=== PATIENT | male | born 1990 | race Caucasian/White ===

== ENCOUNTER 2022-02-24 21:30 | Inpatient (IN) | payer OTHER ==
[2022-02-24 21:55] VITALS: BMI 31.3
[2022-02-24] MEDS ORDERED: MAGNESIUM CITRATE 300 ML BOTTLE PO PRN (22:24)
[2022-02-24] MEDS ORDERED: ONDANSETRON *ODT* 4 MG TABLET SL PRN (22:24)
[2022-02-24] MEDS ORDERED: BENZOCAINE/MENTHOL (CHLORASEPTIC ) LOZENGE MM PRN (22:24)
[2022-02-24] MEDS ORDERED: MAG HYDROX/AL HYDROX/SIMETH 30 ML UNIT-DOSE CUP PO PRN (22:24)
[2022-02-24] MEDS ORDERED: MELATONIN 5 MG TABLETS PO PRN (22:24)
[2022-02-24] MEDS ORDERED: ACETAMINOPHEN 325 MG TABLET (FP) PO PRN (22:24)
[2022-02-24] MEDS ORDERED: DICYCLOMINE HCL 10 MG CAPSULE PO PRN (22:24)
[2022-02-24] MEDS ORDERED: MAGNESIUM HYDROX 2400MG/30ML ORAL SUSPENSION 30 ML CUP PO PRN (22:24)
[2022-02-24] MEDS ORDERED: BISMUTH SUBSALICYLATE 524 MG/30 ML PO PRN (22:24)
[2022-02-24] MEDS ORDERED: guaiFENesin 200 MG/10 ML 10 ML UNIT-DOSE CUPS PO PRN (22:24)
[2022-02-24] MEDS ORDERED: LOPERAMIDE HCL 2 MG CAPSULE PO PRN (22:24)
[2022-02-24] MEDS ORDERED: P-EPHED 60MG/TRIPROLIDI 2.5MG TABLET ONE (23:10)
[2022-02-24] MEDS: P-EPHED 60MG/TRIPROLIDI 2.5MG TABLET PO PRN (23:12)
[2022-02-24] MEDS: METHOCARBAMOL 500 MG TABLET PO PRN (23:30)
[2022-02-24] MEDS: hydrOXYzine PAMOATE 25 MG CAPSULE (FP) PO PRN (23:30)
[2022-02-25] MEDS ORDERED: diazePAM 5 MG TABLET PO PRN (10:15)
[2022-02-25] MEDS: PRENATAL VITAMINS W/ FOLIC ACID TABLET (FP) PO SCH (10:45)
[2022-02-25] MEDS: diazePAM 5 MG TABLET PO SCH ×3 (10:45→22:23)
[2022-02-25] MEDS: METHOCARBAMOL 500 MG TABLET PO PRN (10:45)
[2022-02-25] MEDS: FLUoxetine HCL 20 MG CAPSULE PO SCH (14:12)
[2022-02-25] MEDS: busPIRone HCL 10 MG TABLET (FP) PO SCH ×2 (14:12→22:58)
[2022-02-25 14:20] LABS: HEMATOCRIT 46.2 % (35.4-49); HEMOGLOBIN 14.7 GM/dL (11.7-16.9); MCH 24.6 pg (25.7-33.7); MCHC 31.8 g/dl (32.0-35.9); MEAN CELL VOLUME 77.4 fl (80-96); MEAN PLT VOLUME 9.7 fl (7.5-11.1); PLATELET COUNT 201 10^3/uL (134-434); RBC 5.97 M/mm3 (4.00-5.60); RDW 15.2 % (11.9-15.9)
[2022-02-25 16:32] LABS: BLOOD UREA NITROGEN 21.1 mg/dL (7-18); CALCIUM 8.8 mg/dL (8.5-10.1)
[2022-02-25 16:33] LABS: ALBUMIN 3.4 g/dl (3.4-5.0)
[2022-02-25 16:35] LABS: CREATININE 0.8 mg/dL (0.55-1.3)
[2022-02-25 16:37] LABS: BILIRUBIN,TOTAL 0.9 mg/dL (0.2-1)
[2022-02-25] MEDS: P-EPHED 60MG/TRIPROLIDI 2.5MG TABLET PO PRN (17:14)
[2022-02-25] MEDS: IBUPROFEN 600 MG TABLET (FP) PO PRN (17:15)
[2022-02-25] MEDS: THIAMINE HCL 100 MG TABLET (FP) PO SCH (22:23)
[2022-02-25] MEDS: traZODone HCL 50 MG TABLET (FP) PO SCH (22:29)
[2022-02-25] MEDS: QUEtiapine FUMARATE 100 MG TABLET (FP) PO SCH (22:29)
[2022-02-26] MEDS: diazePAM 5 MG TABLET PO SCH ×4 (05:16→22:29)
[2022-02-26] MEDS: FLUoxetine HCL 20 MG CAPSULE PO SCH (10:05)
[2022-02-26] MEDS: PRENATAL VITAMINS W/ FOLIC ACID TABLET (FP) PO SCH (10:05)
[2022-02-26] MEDS: IBUPROFEN 600 MG TABLET (FP) PO PRN (10:05)
[2022-02-26] MEDS: busPIRone HCL 10 MG TABLET (FP) PO SCH ×2 (10:05→22:28)
[2022-02-26] MEDS: P-EPHED 60MG/TRIPROLIDI 2.5MG TABLET PO PRN ×2 (10:06→18:04)
[2022-02-26] MEDS: IBUPROFEN 400 MG TABLET (FP) PO PRN (18:06)
[2022-02-26] MEDS: traZODone HCL 50 MG TABLET (FP) PO SCH (22:28)
[2022-02-26] MEDS: QUEtiapine FUMARATE 100 MG TABLET (FP) PO SCH (22:28)
[2022-02-26] MEDS: THIAMINE HCL 100 MG TABLET (FP) PO SCH (22:28)
[2022-02-27] MEDS: diazePAM 5 MG TABLET PO SCH ×3 (05:13→22:08)
[2022-02-27] MEDS: P-EPHED 60MG/TRIPROLIDI 2.5MG TABLET PO PRN ×2 (10:54→22:09)
[2022-02-27] MEDS: FLUoxetine HCL 20 MG CAPSULE PO SCH (10:54)
[2022-02-27] MEDS: busPIRone HCL 10 MG TABLET (FP) PO SCH ×2 (10:54→22:09)
[2022-02-27] MEDS: ACETAMINOPHEN 325 MG TABLET (FP) PO PRN (10:55)
[2022-02-27] MEDS: PRENATAL VITAMINS W/ FOLIC ACID TABLET (FP) PO SCH (10:56)
[2022-02-27 11:49] LABS: ALBUMIN 3.3 g/dl (3.4-5.0)
[2022-02-27 11:52] LABS: BLOOD UREA NITROGEN 14.7 mg/dL (7-18); CALCIUM 8.6 mg/dL (8.5-10.1)
[2022-02-27 11:56] LABS: CREATININE 0.6 mg/dL (0.55-1.3); TOT PROT 6.7 g/dl (6.4-8.2)
[2022-02-27 11:58] LABS: BILIRUBIN,TOTAL 0.2 mg/dL (0.2-1)
[2022-02-27] MEDS: NICOTINE POLACRILEX 2 MG GUM BUC PRN ×2 (19:24→21:38)
[2022-02-27] MEDS: QUEtiapine FUMARATE 100 MG TABLET (FP) PO SCH (22:08)
[2022-02-27] MEDS: THIAMINE HCL 100 MG TABLET (FP) PO SCH (22:08)
[2022-02-27] MEDS: traZODone HCL 50 MG TABLET (FP) PO SCH (22:09)
[2022-02-28] MEDS: diazePAM 5 MG TABLET PO SCH ×2 (05:07→18:34)
[2022-02-28] MEDS: FLUoxetine HCL 20 MG CAPSULE PO SCH (10:17)
[2022-02-28] MEDS: busPIRone HCL 10 MG TABLET (FP) PO SCH ×2 (10:18→22:52)
[2022-02-28] MEDS: P-EPHED 60MG/TRIPROLIDI 2.5MG TABLET PO PRN (10:18)
[2022-02-28] MEDS: hydrOXYzine PAMOATE 25 MG CAPSULE (FP) PO PRN (10:18)
[2022-02-28] MEDS: PRENATAL VITAMINS W/ FOLIC ACID TABLET (FP) PO SCH (10:18)
[2022-02-28] MEDS: ACETAMINOPHEN 325 MG TABLET (FP) PO PRN (10:18)
[2022-02-28] MEDS: NICOTINE POLACRILEX 2 MG GUM BUC PRN (10:57)
[2022-02-28] MEDS: QUEtiapine FUMARATE 100 MG TABLET (FP) PO SCH (22:07)
[2022-02-28] MEDS: traZODone HCL 50 MG TABLET (FP) PO SCH (22:07)
[2022-02-28] MEDS: THIAMINE HCL 100 MG TABLET (FP) PO SCH (22:07)
[2022-02-28] MEDS: IBUPROFEN 400 MG TABLET (FP) PO PRN (22:09)
[2022-03-01] MEDS ORDERED: diazePAM 5 MG TABLET PO ONE (06:00)
[2022-03-01 06:17] VITALS: RESP 18
[2022-03-01] MEDS: PRENATAL VITAMINS W/ FOLIC ACID TABLET (FP) PO SCH (09:07)
[2022-03-01] MEDS: FLUoxetine HCL 20 MG CAPSULE PO SCH (09:07)
[2022-03-01] MEDS: busPIRone HCL 10 MG TABLET (FP) PO SCH (09:07)
[2022-03-01 09:23] VITALS: BP 111/58; PULSE 98; TEMP 97.8
== END 2022-03-01 09:25 | disposition home or self-care (01) | DRG 775 ==
LOC: YASAS 21:30 → Y6N 23:10
PROVIDERS: ADMIT Allergy & Immunology; ATTEND Surgery
PROC: HZ2ZZZZ Detoxification Services for Substance Abuse Treatment (ICD-10-PCS; principal; 2022-02-24)
DX: F10.230 Alcohol dependence with withdrawal, uncomplicated (principal); F13.20 Sedative, hypnotic or anxiolytic dependence, uncomplicated; F15.10 Other stimulant abuse, uncomplicated; F12.20 Cannabis dependence, uncomplicated; F17.210 Nicotine dependence, cigarettes, uncomplicated; F19.280 Other psychoactive substance dependence with psychoactive substance-induced anxiety disorder; F19.282 Other psychoactive substance dependence with psychoactive substance-induced sleep disorder; F31.9 Bipolar disorder, unspecified; R76.8 Other specified abnormal immunological findings in serum; Z86.19 Personal history of other infectious and parasitic diseases; Z59.00 Homelessness unspecified; Z56.0 Unemployment, unspecified
CPT/HCPCS: 36415; 80053; 85027; 86593; 86780; 87811; C9803-CS; U0003; U0005